=== PATIENT | male | born 1980 | race Caucasian/White ===

== ENCOUNTER 2016-08-09 19:47 | Emergency (ER) | payer BC ==
[~2016-08-09] VITALS: Ht 188 cm; Wt 117.3 kg
[~2016-08-09 19:47] MED LIST: NO HOME MEDICATIONS; XANAX .25M0.25 MG/TA PO; ZOFRAN 4MG T4 MG/TAB PO
[2016-08-09 19:49] VITALS: BP 146/89; TEMP 98
[2016-08-09 20:44] VITALS: PULSE 85
== END 2016-08-09 20:45 | disposition home or self-care (01) ==
LOC: COL.ER 19:47
DX: S01.81XA Laceration without foreign body of other part of head, initial encounter (principal); Z23 Encounter for immunization; W22.8XXA Striking against or struck by other objects, initial encounter; Y92.830 Public park as the place of occurrence of the external cause

== ENCOUNTER 2017-09-08 01:20 | Emergency (ER) | payer BC ==
[2017-09-08 01:23] VITALS: TEMP 96.9
[2017-09-08] MEDS ORDERED: SAXENDA6 MG/ML SQ (01:26)
[2017-09-08 01:39] LABS: COLLECTION METHOD CLEAN CATCH
[2017-09-08 01:42] LABS: BASO % 0.3 % (0.0-2.0); EOS # 0.4 (0.0-0.7); GRAN # 3.5 (1.4-6.5); GRAN % 49.8 % (42.2-75.2); HEMATOCRIT 40.7 % (42.0-52.0); HEMOGLOBIN 14.8 g/dl (13.5-18.0); LYMPH # 2.6 (1.2-3.4); LYMPH % 37.2 % (20.0-51.0); MEAN CELL VOLUME 93 fl (80.0-100.0); MEAN CORPUSCULAR HEMOGLOBIN 34 pg (27.0-31.0); MEAN CORPUSCULAR HGB CONC 36 g/dl (33.0-37.0); MEAN PLATELET VOLUME 9.4 fl (7.4-10.4); MONO # 0.5 (0.1-0.6); MONO % 6.9 % (1.7-9.3); PLATELET COUNT 211 K/mm3 (130-400); RED BLOOD COUNT 4.39 M/mm3 (4.20-5.60); REDCELL DISTRIBUTION WIDTH-CV 11.2 % (11.5-14.5)
[2017-09-08 01:49] LABS: PH 6 (5-8); SQUAMOUS EPITHELIAL None Seen /hpf; URINE APPEARANCE Clear; URINE BACTERIA None Seen /hpf; URINE BILIRUBIN Negative (NEGATIVE); URINE BLOOD Negative (NEGATIVE); URINE COLOR Straw; URINE GLUCOSE Negative (NEGATIVE); URINE KETONE Negative (NEGATIVE); URINE LEUKOCYTE ESTERASE Negative (NEGATIVE); URINE NITRATE Negative (NEGATIVE); URINE PROTEIN(semi-quant) Negative (NEGATIVE); URINE RBC 0-2 /hpf; URINE UROBILINOGEN Negative (NEGATIVE)
[2017-09-08 01:54] LABS: ALBUMIN 4.6 gm/dL (3.5-5.0); BILIRUBIN,TOTAL 0.9 mg/dL (0.0-1.0); C-REACTIVE PROTEIN 0.8 mg/dL (0.0-0.9); CALCIUM 9.6 mg/dL (8.4-10.2); CREATININE, serum 0.73 mg/dL (0.66-1.25); POTASSIUM 3.6 mmol/L (3.4-5.0); TOTAL PROTEIN 8.6 gm/dL (6.4-8.2)
[2017-09-08] MEDS ORDERED: BENTYL 20MG20 MG/TAB PO (02:35)
[2017-09-08 03:11] VITALS: BP 125/76; PULSE 72
== END 2017-09-08 03:12 | disposition home or self-care (01) ==
LOC: COL.ER 01:20
PROVIDERS: Emergency Medicine
DX: R10.11 Right upper quadrant pain (principal)
CPT/HCPCS: J2765; J3010; J7030; Q9967